=== PATIENT | male | born 1940 | race Caucasian/White ===

== ENCOUNTER 2017-03-16 09:43 | Emergency (ER) | payer OTHER, MEDICARE ==
[~2017-03-16] VITALS: Ht 180.3 cm; Wt 100.0 kg
[2017-03-16] MEDS ORDERED: EPINEPHrine 1:1,000 [1 MG/ML] AMP ET ONE (09:46)
[2017-03-16] MEDS ORDERED: DOPamine HCL/D5W 400 MG/250 ML IV BAG IV ONE (09:46)
[2017-03-16] MEDS ORDERED: ATROPINE SULFATE 0.1 MG/ML 10 ML SYRINGE IVP ONE (09:46)
[2017-03-16 10:20] LABS: BASOPHILS % (AUTO) 0.4 % (0.0-2.0); EOSINOPHILS % (AUTO) 1.8 % (1.0-6.0); HEMATOCRIT 41.7 % (41-53); HEMOGLOBIN 12.9 g/dL (13.5-17.5); LYMPHOCYTES # (AUTO) 4.7 K/uL (1.0-4.8); LYMPHOCYTES % (AUTO) 50.1 % (22.0-44.0); MEAN CORPUSCULAR HEMOGLOBIN 27.8 pg (26.0-34.0); MEAN CORPUSCULAR HGB CONC 30.9 G/dL (31.0-37.0); MEAN CORPUSCULAR VOLUME 90 fL (80-100); MONOCYTES # (AUTO) 0.7 K/uL (0.1-1.0); MONOCYTES % (AUTO) 7.1 % (2.0-9.0); NEUTROPHILS # (AUTO) 3.8 K/uL (1.8-7.7); NEUTROPHILS % (AUTO) 40.6 % (40.0-70.0); PLATELET COUNT (AUTO) 90 K/uL (150-450); RED BLOOD CELL COUNT(AUTO) 4.64 MIL/uL (4.50-5.90); RED CELL DISTRIBUTION WIDTH 15.8 % (11.5-14.5); WHITE BLOOD COUNT (AUTO) 9.3 K/uL (4.5-11.0)
[2017-03-16] MEDS ORDERED: RAPID SEQUENCE KIT [RSI] 1 EACH KIT ONE ×2 (10:22)
[2017-03-16] MEDS ORDERED: SUCCINYLCHOLINE CHLORIDE 20 MG/ML 10 ML VIAL ONE (10:22)
[2017-03-16 10:25] VITALS: BP 0/0
[2017-03-16 10:31] LABS: INR 1.2 (0.9-1.1); PROTHROMBIN TIME 12.7 SEC (9.4-11.6)
[2017-03-16 10:32] LABS: ANION GAP 22 mmol/L (8-16); CALCIUM, TOTAL 8.3 mg/dL (8.8-10.5); CARBON DIOXIDE 17 mmol/L (22-29); CHLORIDE 110 mmol/L (98-107); CREATININE 2.19 mg/dL (0.60-1.30); GLOMERULAR FILTR. RATE CALC 29 mL/min (>60); POTASSIUM 4.7 mmol/L (3.5-5.1); SODIUM SERUM 149 mmol/L (136-145); UREA NITROGEN, BLOOD 20 mg/dL (7-18)
[2017-03-16] MEDS ORDERED: METF500T4 PO (10:35)
[2017-03-16 10:38] LABS: TROPONIN I 0.69 ng/mL (0.00-0.05)
[2017-03-16 10:42] LABS: B-TYPE NATRIURETIC PEPTIDE 617 pg/mL (0-100)
[2017-03-16 10:56] LABS: ALANINE AMINOTRANSFERASE 191 U/L (12-78); ALBUMIN 2.2 g/dL (3.4-5.0); ASPARTATE AMINOTRANSFERASE 167 U/L (15-37); BILIRUBIN,TOTAL 0.5 mg/dL (0.1-1.0); CREATINE KINASE MB 4.1 ng/mL (0-5); CREATINE KINASE, TOTAL 299 U/L (39-308); TOTAL PROTEIN, SERUM 5.7 g/dL (6.4-8.2)
== END 2017-03-16 13:26 | disposition expired ==
LOC: EMS 09:45
DX: I46.9 Cardiac arrest, cause unspecified (principal); I25.2 Old myocardial infarction; E11.9 Type 2 diabetes mellitus without complications; J45.909 Unspecified asthma, uncomplicated
CPT/HCPCS: 31500; 36415; 51702; 80053; 82140; 82550; 82553; 83880; 84484; 85025; 85610; 85730; 87040; 92950; 93005; 99291; J0171; J0461; J1265; J0330